=== PATIENT | male | born 1985 | race Caucasian/White ===

== ENCOUNTER 2025-02-24 23:27 | Outpatient (OUT) | payer OTHER, SELFPAY ==
--- OUTSIDE RECORDS SUMMARY | 2025-02-24 23:32 | XMS_ITS | Clinical Summary ---
Author Organization [facility] Address [id number] [address] [place] [address] Care Team Providers Care Fabrication Welder Name Role Phone Unavailable Primary Care Provider Unavailabl e Allergies Active Allergy Reactions Criticality Noted Date Comments Penicillins 01/17/2022 Medications acetaminophen (TYLENOL EXTRA STRENGTH) 500 mg tablet Take 2 tablets (1,000 mg total) by mouth every 6 (six) hours as needed for pain. 30 tablet 01/17/2022 Active Social History Tobacco Use Types Packs/Day Years Used Date Smoking Tobacco: Never Assessed Childcare Answer Date Recorded Childcare Unknown 12/29/2018 Employment Answer Date Recorded Employment Unknown 12/29/2018 Sex and Gender Information Value Date Recorded Sex Assigned at Not on file Legal Sex Male 12:09 PM EDT Gender Identity Not on file Sexual Orientation Not on file Last Filed Vital Signs Vital Sign Reading Time Taken Comments Blood Pressure 186/85 01/17/2022 8:35 PM EDT Pulse 91 01/17/2022 8:35 PM EDT Temperature 36.8 C (98.3 F) 01/17/2022 8:35 PM EDT Respiratory Rate 22 01/17/2022 8:35 PM EDT Oxygen Saturation 99% 01/17/2022 8:35 PM EDT Inhaled Oxygen Concentration - - Weight - - Height - - Body Mass Index - - Plan of Treatment Health Maintenance Due Date Last Done Comments Depression Screening 1995 Tobacco Screening 1995 Adult BMI Screening 12/24/2001 DTaP,Tdap and Td Vaccines (1 - Tdap) 12/24/2002 Influenza Vaccine 03/20/2025 Medical Devices Not on file Insurance [employer] [id number]
--- NOTE | 2025-02-25 | XR_ITS ---
The [address] [address] Patient Name: JOSHUA SHAIKH MRN: [id number] date: 1985 Sex: M Assigned Patient Location: RAD Current Patient Location: [facility] Accession/Order Number: [id number] Exam Date: 02/25/2025 09:18 Report Date: 02/25/2025 09:19 At the request of: DEEPA HOOK MD Procedure: XR shoulder LT min 2V LEFT SHOULDER - - 2 views CLINICAL HISTORY: possible dislocation COMPARISON: None FINDINGS: Joint spaces appear maintained without dislocation. No acute bony process. XR/XR shoulder LT min 2V IMPRESSION: No acute bony process. Impression dictated by: Brandon Slater Jr., D.OMarsha 02/25/2025 9:19 AM Dictation Location: [place] [address] Electronically authenticated by: [id number] Y Date: 02/25/2025 09:19
== END 2025-02-24 23:28 | disposition home or self-care (01) ==
PROVIDERS: PCP Family Medicine; Visit Provider Preventive Medicine Preventive Medicine/Occupational Environmental Medicine
DX: M25.512 Pain in left shoulder (principal)
CPT/HCPCS: 73030

== ENCOUNTER 2025-03-16 09:30 | Outpatient (OUT) | payer OTHER, SELFPAY ==
--- NOTE | 2025-03-16 | XR_ITS ---
The [address] [address] Patient Name: JOSHUA SHAIKH MRN: [id number] date: 1985 Sex: M Assigned Patient Location: [facility] Current Patient Location: [facility] Accession/Order Number: [id number] Exam Date: 03/16/2025 09:35 Report Date: 03/16/2025 12:04 At the request of: СЕРГЕЙ CASTILLO DO Procedure: XR shoulder LT min 2V LEFT SHOULDER - 4 views CLINICAL HISTORY: Left shoulder pain for the past 2-3 weeks following fall M25.512 COMPARISON: 02/25/2025 AP, Y, axillary and Grashey views were obtained. There is no evidence of fracture or dislocation. There are no significant soft tissue abnormalities. XR/XR shoulder LT min 2V IMPRESSION: NO ACUTE BONY INJURY. Impression dictated by: Ngoc Vivas M.D. 03/16/2025 12:04 PM Dictation Location: [place] [address] Electronically authenticated by: [id number] Y Date: 03/16/2025 12:04
--- OUTSIDE RECORDS SUMMARY | 2025-03-16 09:32 | XMS_ITS | Clinical Summary ---
Author Organization [email or web address] Address [id number] [address] [place] [address] Care Team Providers Care Retail Delivery Driver Name Role Phone Unavailable Primary Care Provider [...] Devices Not on file Insurance [employer] [id number]
--- OUTSIDE RECORDS SUMMARY | 2025-03-16 09:32 | XMS_ITS | Encounter Summary ---
Author Organization [facility] Address [address] [place] [address] Care Team Providers Care Systematic Theology Professor Name Role Phone Frank Ledesma MD Primary Care Provider [phone] Reason for Visit * Reason Onset Date Comments pain medication 03/02/2025 Encounter Details Date Type Department Care Team (Late st Contact Info) Description 03/02/2025 Telephone [facility] [address] [place] [phone] Frank Ledesma MD [address] [place] [id number] pain medication Social History Tobacco Use Types Packs/Day Years Used Date Smoking Tobacco: Every Day Cigarettes 1 21.7 Started: 2003 Smokeless Tobacco: Never Sex and Gender Information Value Date Recorded Sex Assigned at Not on file Legal Sex Male 7:37 PM EDT Gender Identity Not on file Sexual Orientation Not on file documented as of this encounter Miscellaneous Notes * Telephone Encounter - Frank Ledesma MD - 03/02/2025 10:08 AM EDT Script sent for pain medication. Follow up with [facility] and [facility]. * Telephone Encounter - Barbie Jang - 03/02/2025 9:49 AM EDT Patient stopped in stating that he dislocated his shoulder at work. I did explain to him we do not do workman's comp here. He gave us a copy of his MRI. He is asking for some pain medication, said hewas not given any and is in pain. JN documented in this encounter Plan of Treatment Not on file documented as of this encounter Visit Diagnoses Diagnosis Traumatic complete tear of left rotator cuff, subsequent encounter- Primary documented in this encounter Care Teams Systematic Theology Professor Relationship Specialty Start Date End Date Frank Ledesma MD [address] [place] [place] [address] PCP - General Family Medicine 03/23/24 documented as of this encounter
--- OUTSIDE RECORDS SUMMARY | 2025-03-16 09:32 | XMS_ITS | Clinical Summary ---
Author Organization [facility] Address [address] [place] [address] Care Team Providers Care Nutritional Assistant Name Role Phone Frank Ledesma MD Primary Care Provider [phone] Allergies No known active allergies Medications nabumetone (Relafen) 500 MG tabletIndication s:Internal derangement of right knee involving anterior horn of medial meniscus Take 1 tablet (500 mg) by mouth 2 (two) times a day as needed for mild pain or moderate pain 60 tablet 5 4 Active oxyCODONE-acetam inophen (Percocet) 5-325 MG tabletIndication s:Traumatic complete tear of left rotator cuff, subsequent encounter Take 1 tablet by mouth 4 (four) times a day as needed for moderate pain or severe pain for up to 7 days 28 tablet 5 03/09/20 25 Active Problems Problem Noted Date Diagnosed Date Traumatic complete tear of left rotator cuff Dyslipidemia 04/01/2024 Erectile dysfunction of organic origin 4 Generalized anxiety disorder 04/01/2024 Persistent insomnia 04/01/2024 Vitamin D deficiency 04/01/2024 Annual physical exam 04/01/2024 Assessment & Plan (04/01/2024 9:35 AM EDT): Due for labs. Discussed proper diet and regular aerobic exercise. Need aerobic exercise 5-6 days a week for 30 minutes at a time. Smaller portions and limit total calories. Colonoscopy after age 45. Tetanus every 10 years. Advised not to smoke. Discussed daily Aspirin therapy. Right ACL tear 04/01/2024 Assessment & Plan (04/01/2024 9:36 AM EDT): Prior injury and tear, saving money for surgery. Use relafen PRN. Internal derangement of righ t knee involving anterior horn of medial meniscus 04/01/2024 Assessment & Plan (04/01/2024 9:36 AM EDT): Prior injury and tear, saving money for surgery. Use relafen PRN. Resolved Problems Problem Noted Date Diagnosed Date Resolved Date Major depressive disorder, r ecurrent episode, moderate 04/01/2024 04/01/2024 Encounters Date Type Department Care Team Description 03/02/2025 [facility]phone [facility] [address] [place] [address] Frank Ledesma MD pain medication 02/28/2025 9:45 AM EDT Ancillary Procedure [facility] [address] [place] [address] Pain in left shoulder 02/28/2025 8:30 AM EDT Ancillary Procedure [facility] [address] [place] [address] Foreign body in eye 02/28/2025 Travel 02/25/2025 Clinisync Result Encounter [facility] External Department Unsolicited Provider, Generic External Data from Last 3 Months Social History Tobacco Use Types Packs/Day Years Used Date Smoking Tobacco: Every Day Cigarettes 1 21.7 Started: 2003 Smokeless Tobacco: Never Tobacco Cessation:Ready to Q uit: Not Asked; Counseling Given: Not Answered Sex and Gender Information Value Date Recorded Sex Assigned at Not on file Legal Sex Male 7:37 PM EDT Gender Identity Not on file Sexual Orientation Not on file Last Filed Vital Signs Vital Sign Reading Time Taken Comments Blood Pressure 124/60 04/01/2024 9:15 AM EDT Pulse 83 04/01/2024 9:15 AM EDT Temperature 36.6 C (97.8 F) 04/01/2024 9:15 AM EDT Respiratory Rate 18 04/01/2024 9:15 AM EDT Oxygen Saturation 99% 04/01/2024 9:15 AM EDT Inhaled Oxygen Concentration - - Weight 88.5 kg (195 lb) 04/01/2024 9:15 AM EDT Height 167.6 cm (5' 6 ) 04/01/2024 9:15 AM EDT Body Mass Index 31.47 04/01/2024 9:15 AM EDT Plan of Treatment Health Maintenance Due Date Last Done Comments Influenza Vaccine (#1) 2025 Procedures Procedure Name Priority Date/Time Associated Diagnosis Comments MR SHOULDER LEFT WO IV CONTRAST Routine 02/28/2025 10:11 AM EDT Pain in left shoulder XR ORBITS 1 TO 3 VIEWS STAT 02/28/2025 8:36 AM EDT Foreign body in eye XR SHOULDER 2+ VIEWS LEFT 02/25/2025 9:19 AM EDT from Last 3 Months Results * MR shoulder left wo IV contrast (02/28/2025 10:11 AM EDT) Anatomical Region Laterality Modality Upper Extremities, Shoulder Left Magn etic Resonance 02/28/2025 1:33 PM EDT Impressions 02/28/2025 1:41 PM EDT Recent appearing full-thickness tear involving essentially entire distal subscapularis as discussed. Bone marrow edema of the posterior lateral humeral head, which could be reactive or bone contusion. ELECTRONICALLY SIGNED BY: Jarvsi Luque MD Narrative 02/28/2025 1:41 PM EDT EXAMINATION/TECHNIQUE: MR SHOULDER LEFT WO IV CONTRAST HISTORY: Left shoulder pain. Fall. Limited range of motion. COMPARISON: None RESULT: Rotator Cuff Tendons: Full-thickness tearing involving essentially entire distal subscapularis with medial retraction of the torn fibers to near the glenohumeral joint, with underlying tendinosis. Mild tendinosis involving supraspinatus and infraspinatus, without tear. Teres minor appears intact. Long Head Biceps Tendon: Medial subluxation, likely secondary to the subscapularis tear, otherwise appears grossly intact. Muscle: Diffuse edema signal involving the subscapularis musculature, reactive to the above tear. No significant muscle volume loss. Mild fatty infiltration involving teres minor. Labrum: Fraying and/or tearing superiorly. Bones and Marrow: Focal bone marrow edema involving the posterior lateral aspect of the humeral head, which could be reactive or bone contusion. No evidence for fracture. Glenohumeral Joint: No measurable full-thickness chondral defect. No significant joint effusion. Acromioclavicular Joint: Mild degenerative changes. Other: Mild subacromial-subdeltoid bursal thickening/fluid. Procedure Note Jarvis Luque MD - 02/28/2025 EXAMINATION/TECHNIQUE: MR SHOULDER LEFT WO IV CONTRAST HISTORY: Left shoulder pain. Fall. Limited range of motion. COMPARISON: None RESULT: Rotator Cuff Tendons: Full-thickness tearing involving essentially entiredistal subscapularis with medial retraction of the torn fibers to near theglenohumeral joint, with underlying tendinosis. Mild tendinosis involvingsupraspinatus and infraspinatus, without tear. Teres minor appearsintact. Long Head Biceps Tendon: Medial subluxation, likely secondary to thesubscapularis tear, otherwise appears grossly intact. Muscle: Diffuse edema signal involving the subscapularis musculature,reactive to the above tear. No significant muscle volume loss. Mild fattyinfiltration involving teres minor. Labrum: Fraying and/or tearing superiorly. Bones and Marrow: Focal bone marrow edema involving the posterior lateralaspect of the humeral head, which could be reactive or bone contusion. Noevidence for fracture. Glenohumeral Joint: No measurable full-thickness chondral defect. Nosignificant joint effusion. Acromioclavicular Joint: Mild degenerative changes. Other: Mild subacromial-subdeltoid bursal thickening/fluid. IMPRESSION: Recent appearing full-thickness tear involving essentially entire distalsubscapularis as discussed. Bone marrow edema of the posterior lateral humeral head, which could bereactive or bone contusion. ELECTRONICALLY SIGNED BY: Jarvis Luque MD Jarvis Morales MD IMG MRI PROCEDURES Final Result * XR ORBITS 1 to 3 VIEWS (02/28/2025 8:36 AM EDT) Anatomical Region Laterality Modality Head, Neck Radiographic Sneha ging 02/28/2025 9:14 AM EDT Impressions 02/28/2025 9:15 AM EDT No acute osseous findings. No evidence for foreign body radiographically. ELECTRONICALLY SIGNED BY: Jarvis Luque MD Narrative 02/28/2025 9:15 AM EDT EXAMINATION/TECHNIQUE: XR ORBITS 1 TO 3 VIEWS HISTORY: MRI clearance. History of metal in the eyes. COMPARISON: None RESULT: No radiopaque foreign body. No acute osseous findings. No destructive osseous lesions. Paranasal sinuses grossly clear. Procedure Note Jarvis Luque MD - 02/28/2025 EXAMINATION/TECHNIQUE: XR ORBITS 1 TO 3 VIEWS HISTORY: MRI clearance. History of metal in the eyes. COMPARISON: None RESULT: No radiopaque foreign body. No acute osseous findings. No destructiveosseous lesions. Paranasal sinuses grossly clear. IMPRESSION: No acute osseous findings. No evidence for foreign bodyradiographically. ELECTRONICALLY SIGNED BY: Jarvis Luque MD Jarvis Morales MD IMG XR PROCEDURES Final Result * XR shoulder 2+ views left (02/25/2025 9:19 AM EDT) Anatomical Region Laterality Modality Upper Extremities, Shoulder Left Radi ographic Imaging 02/25/2025 9:19 AM EDT Narrative 02/25/2025 9:21 [place] [address] XRay Report Signed Patient: RAMEZ PERKINS MR#: [id number] : 1985 Acct:[id number] Age/Sex: 39 / M ADM Date: 02/24/25 Loc: RAD Attending Dr: Jarvis Morales M.D. Ordering Physician: Jarvis Morales M.D. Date of Service: 02/25/25 Procedure(s): XR shoulder LT min 2V Accession Number(s): [id number] cc: Frank Ledesma M.D.; Jarvis Morales M.D. The [place] [id number] Patient Name: RAMEZ PERKINS MRN: [id number] date: 1985 Sex: M Assigned Patient Location: RAD Current Patient Location: RAD Accession/Order Number: [id number] Exam Date: 02/25/2025 09:18 Report Date: 02/25/2025 09:19 At the request of: JARVIS MORALES MD Procedure: XR shoulder LT min 2V LEFT SHOULDER - - 2 views CLINICAL HISTORY: possible dislocation COMPARISON: None FINDINGS: Joint spaces appear maintained without dislocation. No acute bony process. XR/XR shoulder LT min 2V IMPRESSION: No acute bony process. Impression dictated by: Brandon Slater Jr., D.OMarsha 02/25/2025 9:19 AM Dictation Location: [place] [address] Electronically authenticated by: [id number] Y Date: 02/25/2025 09:19 Dictated By: Brandon Slater M.D. Signed By: 02/25/25920 DD/ 8 TD/TT: Structures Technician: Procedure Note Radiology, Radiologist, MD - 02/25/2025 [place] [address] XRay Report Signed Patient: RAMEZ PERKINS DMR#: [id number] : 1985Acct:[id number] Age/Sex: 39 / MADM Date: 02/24/25 Loc: RAD Attending Dr: Jarvis Morales M.D. Ordering Physician: Jarvis Morales M.D. Date of Service: 02/25/25 Procedure(s): XR shoulder LT min 2V Accession Number(s): [id number] cc: Frank Ledesma M.D.; Jarvis Morales M.D. The [place] [id number] Patient Name: RAMEZ PERKINS MRN: [id number] date: 1985 Sex: M Assigned Patient Location: RAD Current Patient Location: RAD Accession/Order Number: [id number] Exam Date: 02/25/2025 09:18 Report Date: 02/25/2025 09:19 At the request of: JARVIS MORALES MD Procedure: XR shoulder LT min 2V LEFT SHOULDER - - 2 views CLINICAL HISTORY: possible dislocation COMPARISON: None FINDINGS: Joint spaces appear maintained without dislocation. No acute bonyprocess. XR/XR shoulder LT min 2V IMPRESSION: No acute bony process. Impression dictated by: Brandon Slater Jr., D.O. 02/25/2025 9:19 AM [facility]ictation [facility] Electron[facility] authenticated by: [id number] Y Date: 9:19 Dictated By: Brandon Slater M.D. Signed By:02/25/25920 DD/ 8 TD/TT: Structures Technician: Generic External Data Provider IMG XR PROCEDURES Final Result from Last 3 Months Insurance [employer] [place] [employer] Care Teams Nutritional Assistant Relationship Specialty Start Date End Date Frank Ledesma MD [address] [place] [address] PCP - General Family Medicine 03/23/24
== END 2025-03-16 09:31 | disposition home or self-care (01) ==
LOC: RAD 09:30
PROVIDERS: PCP Family Medicine; Visit Provider Physician Assistant
DX: M25.512 Pain in left shoulder (principal)
CPT/HCPCS: 73030